=== PATIENT | male | born 1990 | race Caucasian/White ===

== ENCOUNTER 2019-06-05 10:07 | Emergency (ER) | payer SELFPAY ==
[2019-06-05 10:09] VITALS: BP 110/64; PULSE 65; RESP 16; TEMP 36.6; O2SAT 99
--- NOTE | 2019-06-05 10:37 | ED.GENADULT ---
HPI - General Adult General Chief complaint: Back Pain/Injury Stated complaint: testicle pain/back pain Time Seen by Provider: 06/05/19 10:26 Source: patient and RN notes reviewed Mode of arrival: ambulatory Limitations: no limitations History of Present Illness HPI narrative: Patient presents today with a one-week history of right-sided low back pain. Denies any injury or trauma. Pain does not radiate. Denies numbness or tingling in the extremities. Denies any loss of bowel or bladder control. He is also complaining of right testicular pain, only with urination. The symptoms started this morning. Denies hematuria, frequency, urgency, penile discharge. Denies swelling or redness of the scrotum. Denies abdominal pain, nausea, vomiting. He currently rates his back pain 2/10 and is currently pain-free in the testicles. He has been occasionally taking Advil. Last dose was yesterday. MD complaint: Left testicular pain, low back pain Related Data Home Medications Medication Instructions Recorded Confirmed No Home Medications 06/05/19 06/05/19 Allergies Allergy/AdvReac Type Severity Reaction Status Date / Time No Known Allergies Allergy Verified 06/05/19 10:19 Review of Systems Review of Systems: Narrative: CONSTITUTIONAL: Denies body aches, fever, chills, or sweats. EYES: Denies visual changes, redness, or discharge. ENT: Denies rhinorrhea, congestion, sore throat, or otalgia. CARDIOVASCULAR: Denies chest pain, palpitations, or edema. RESPIRATORY: Denies cough or dyspnea. GASTROINTESTINAL: Denies abdominal pain, nausea, vomiting, or diarrhea. GENITOURINARY: Denies dysuria or hematuria.+ Left testicular pain with urination SKIN: Denies rash, itching, or wounds. MUSCULOSKELETAL: Denies joint pain, or myalgia.+ Right-sided low back pain NEUROLOGIC: Denies headache, numbness, tingling, or weakness. PSYCH: Denies depression or anxiety. PMFSH Comments At time of signature, I have reviewed and agree with nursing past medical, surgical, social and family history unless otherwise noted. Please see nursing chart for further information. There is no relevant family history pertinent to the presenting complaint Exam Narrative: Exam Narrative: GENERAL: Well-appearing, well-nourished, and in no acute distress. HEAD: Normocephalic, atraumatic. EYES: EOMI. No redness or drainage. ENT: Mucous membranes pink and moist. NECK: Normal AROM. CHEST: No respiratory distress. Clear to auscultation. HEART: Regular rate and rhythm. No murmur appreciated. Normal peripheral pulses. ABDOMEN: Soft, nontender, nondistended, normal active bowel sounds.-CVAT : patient has tenderness to the right lateral testicle. No swelling, deformity, or erythema noted to the scrotum or testicles. No firmness, masses, ropes palpated. He does not have posterior tenderness of either testicle. No penile discharge noted. Circumcised. No swelling, erythema, rash, wounds, or tenderness to the penis. Left testicle normal and nontender. MUSCULOSKELETAL: No bony tenderness of the spine. Right lower lumbar paraspinal muscle tenderness. No tenderness to the SI joints. Normal saddle sensation. EXTREMITIES: Normal range of motion. No edema. SKIN: Warm, dry, no rash. NEURO: No focal deficits. Alert and oriented x3. Gait steady. PSYCH: Normal affect. No signs of depression or anxiety. Course Course Emergency Course: Patient does have tenderness to the right testicle without swelling or erythema. UA is negative. Discussed with patient options for care: Transfer to the ER for further evaluation, or make an appointment with his PCP within the next 1 to 2 days for possible order of outpatient scrotal ultrasound. Patient would like to contact his PCP and believes he may be able to get in tomorrow for visit. Instructed patient that if his pain worsens, or if he develops any new symptoms, he needs to go the ER immediately for further evaluation. Vital Signs Vit
== END 2019-06-05 11:01 | disposition home or self-care (01) ==
PROVIDERS: Emergency Provider Nurse Practitioner
DX: S39.012A Strain of muscle, fascia and tendon of lower back, initial encounter (principal); X58.XXXA Exposure to other specified factors, initial encounter; N50.811 Right testicular pain
CPT/HCPCS: 81003; 99202; G0463

== ENCOUNTER 2019-12-12 20:54 | Emergency (ER) | payer OTHER, SELFPAY ==
--- NOTE | ~2019-12-12 | XR_ITS ---
EXAMINATION: XR shoulder LT min 2V EXAM DATE: 12/12/2019 21:36 INDICATION: Initial encounter following injury, with pain of the left shoulder. TECHNIQUE: The following left shoulder projections obtained: frontal projection with internal rotatio n, frontal projection with external rotation, Grashey, and axillary (4+ views). There is no prior st udy for comparison. FINDINGS: No evidence of left shoulder rotator cuff calcific tendinosis. Unremarkable left glenoh umeral and acromioclavicular joints. There are no acute fractures or dislocations identified. There is no subcutaneous gas. The soft tissue is unremarkable. There are no radiopaque foreign bodies. IMPRESSION: No acute osseous findings. Reviewed, dictated and finalized at location A. IMPRESSION: No acute osseous findings.
[2019-12-12 20:57] VITALS: BP 128/66; PULSE 71; RESP 19; TEMP 36.6; O2SAT 100
--- NOTE | 2019-12-12 22:13 | ED.UPPEXIN ---
HPI - Extremity Injury (Upper) General Chief Complaint: Extremity Injury, Upper Stated Complaint: L shoulder injury Time Seen by Provider: 12/12/19 21:08 History of Present Illness HPI narrative: He was play wrestling with someone at his home earlier this evening when he fell onto his left shoulder. Pain from the neck to mid upper arm. He reports that he is not able to flex or adduct his shoulder. Related Data Allergies Allergy/AdvReac Type Severity Reaction Status Date / Time No Known Allergies Allergy Verified 06/05/19 10:19 Review of Systems Review of Systems: All systems reviewed & are unremarkable except as noted in HPI and below Musculoskeletal: Musculoskeletal: Denies back pain Neurologic: Denies numbness and Denies weakness [facility] Social History Social History Gender identity (if verbalized by the patient): Male Exam Const: General: healthy appearing, no acute distress and alert Orientation/consciousness: patient oriented x3 HENMT: Head: normal to inspection Chest: Chest palpation & inspection: no tenderness Resp: Effort & Inspection: normal respiratory effort Auscultation: clear to auscultation bilaterally Cardio: Rate: regular rate Rhythm: regular rhythm Skin: General skin exam: normal color Wounds: no wounds Extrem: Other: Full ROM in left shoulder. No deformity Course Vital Signs Vital signs: Vital Signs Temperature 36.6 C 12/12/19 20:57 Pulse Rate 71 12/12/19 20:57 Respiratory Rate 19 12/12/19 20:57 Blood Pressure 128/66 12/12/19 20:57 Pulse Oximetry 100 12/12/19 20:57 Temperature 36.9 C 12/12/19 23:24 Pulse Rate 78 12/12/19 23:24 Respiratory Rate 16 12/12/19 23:24 Blood Pressure 126/78 12/12/19 23:24 Pulse Oximetry 98 12/12/19 23:24 MDM - Extremity Injury (Upper) MDM Narrative Medical decision making narrative: X-ray negative. Medical Records Attestation: I reviewed the patient's medical records. Imaging Data Radiologist's impression: ITS Impressions Shoulder X-Ray 12/12/19 21:37 IMPRESSION: No acute osseous findings. Discharge Plan Discharge Clinical Impression: Strain of left pectoralis muscle Patient Disposition: Home, Self-Care Condition: Stable Instructions: Muscle Strain (ED) Prescriptions: New cyclobenzaprine 10 mg tablet 10 mg PO TID PRN (Reason: muscle spasm) Qty: 20 RF: 0 ibuprofen 600 mg tablet 600 mg PO QID PRN (Reason: pain) Qty: 30 RF: 0 Follow-up/Referrals: UNKNOWN,DOCTOR [Primary Care Provider] - Discharge Date/Time: 12/12/19 23:25
[2019-12-12] MEDS: CYCLOBENZAPRINE HCL 10 MG TABLET PO (23:19)
[2019-12-12 23:24] VITALS: BP 126/78; PULSE 78; RESP 16; TEMP 36.9; O2SAT 98
== END 2019-12-12 23:25 | disposition home or self-care (01) ==
PROVIDERS: Emergency Provider Emergency Medicine
DX: S29.011A Strain of muscle and tendon of front wall of thorax, initial encounter (principal); W18.39XA Other fall on same level, initial encounter; Y93.83 Activity, rough housing and horseplay
CPT/HCPCS: 73030; 99283; A9270

== ENCOUNTER 2020-05-28 12:46 | Emergency (ER) | payer OTHER, SELFPAY ==
[2020-05-28 13:00] VITALS: BP 120/68; PULSE 72; RESP 18; TEMP 36.5; O2SAT 99
[2020-05-28 13:12] LABS: Basophils Absolute Auto 0.1 K/mm3 (0.0-0.1); Basophils Percent Auto 0.7 % (0.2-1.2); Eosinophils Absolute Auto 0.2 K/mm3 (0-0.3); Eosinophils Percent Auto 2.2 % (0-4.4); Hematocrit 44.7 % (42.0-52.0); Hemoglobin 15.1 g/dL (14.0-18.0); Immature Granulocyte Absolute 0.01 K/mm3 (0.00-0.031); Immature Granulocyte Percent A 0.1 % (0-0.5); Lymphocytes Absolute Auto 1.75 K/mm3 (0.9-3.2); Mean Corpuscular HGB Conc 33.8 g/dl (32-36); Mean Corpuscular Hemoglobin 29.8 pg (26-34); Mean Corpuscular Volume 88.2 fl (80-100); Mean Platelet Volume 9.6 fl (7.4-10.4); Monocytes Absolute Auto 0.7 K/mm3 (0.1-0.6); Monocytes Percent Auto 8.9 % (2.6-8.5); Neutrophils Absolute Auto 4.7 K/mm3 (1.3-6.7); Neutrophils Percent Auto 64.1 % (45.5-73.1); Platelet Count Result 214 k/mm3 (150-375); Red Blood Count 5.07 M/mm3 (4.6-6.20); Red Cell Distribution Width 12.3 % (11.5-14.5); White Blood Count 7.3 K/mm3 (4.5-10.0)
[2020-05-28 13:12] LABS: Glucose Point of Care 106 (65-105)
[2020-05-28 13:21] LABS: Alanine Aminotransferase 16 U/L (4-50); Albumin Level 4.1 g/dL (3.5-5.1); Alkaline Phosphatase 68 U/L (38-126); Anion Gap 4 mmol/L (8-16); Aspartate Amino Transferase 26 U/L (17-59); Bilirubin,Total 0.5 mg/dL (0.2-1.3); Blood Urea Nitrogen 10 mg/dL (9-20); Calcium 8.9 mg/dL (8.4-10.2); Carbon Dioxide 27 mmol/L (22-30); Chloride 106 mmol/L (98-107); Estimated CRCL calculation 87 ml/min; Estimated Glomerular Filt Rate > 60; Glucose 106 mg/dL (75-110); Potassium 4.1 mmol/L (3.4-5.0); Sodium 137 mmol/L (137-145)
[2020-05-28 13:28] LABS: Add Urine Microscopic? NO; Appearance Urine Clear (Clear); Bilirubin Urine Negative (Negative); Blood Urine Negative (Negative); Color Urine Yellow (Yellow); Glucose Urine UA Negative (Negative); Ketones Urine Negative (Negative); Leukocyte Esterase Ur Negative LEU/UL (Negative); Nitrate Urine Negative (Negative); Protein Urine Negative (Negative); Specific Grav Ur 1.018 (1.001-1.035); Urobilinogen Urine Negative mg/dL (<2.0)
--- NOTE | 2020-05-28 13:38 | PC.NURSE ---
pt states is here to have testing done to rule out diabetes though pt has no symptoms of this.
--- NOTE | 2020-05-28 13:50 | PC.NURSE ---
a1c and tsh added by dr. waldrop. pt resting quietly on stretcher using cell phone. no distress noted.
[2020-05-28 14:14] LABS: Hemoglobin A1C 5.5 % (<5.7)
--- NOTE | 2020-05-28 15:14 | ED.RECABL ---
HPI - Recheck/Abnormal Lab/Rx General Chief Complaint: Recheck/Abnormal Lab/Rx Stated Complaint: ELEVATED BLOOD SUGAR [id number] Time Seen by Provider: 05/28/20 13:50 Source: patient Mode of arrival: ambulatory Limitations: no limitations History of Present Illness HPI narrative: A 29-year-old male basically in good health For 2 or 3 weeks he sometimes does find himself urinating frequently without any symptoms of burning or dysuria Because of this he had borrowed a glucometer and checked a couple of random blood sugars which were in the mid 200s There is a family history of diabetes but has never been a problem for him previously No other complaints Related Data Home Medications Medication Instructions Recorded Confirmed No Home Medications 05/28/20 Allergies Allergy/AdvReac Type Severity Reaction Status Date / Time No Known Allergies Allergy Verified 05/28/20 13:33 Review of Systems Review of Systems: All systems reviewed & are unremarkable except as noted in HPI and below Constitutional: Constitutional: Denies chills, Denies fatigue, Denies fever(s), Denies headache(s) and Denies weakness Eyes: Eyes: Reports no additional eye complaints and Denies change in vision ENT: Denies headache(s), Denies epistaxis, Denies nasal congestion and Denies sore throat Cardiovascular: Cardiovascular: Denies chest pain, Denies leg edema, Denies palpitations and Denies dyspnea Respiratory: Respiratory: Denies cough, Denies dyspnea and Denies wheezing Gastrointestinal: Gastrointestinal: Denies abdominal pain, Denies diarrhea, Denies nausea and Denies vomiting Genitourinary: Genitourinary: Denies hematuria, Denies dysuria and Reports urinary frequency Musculoskeletal: Musculoskeletal: Denies deformity, Denies arthralgias, Denies joint swelling, Denies muscle weakness and Denies numbness Integumentary/Breasts: Skin/Breast: Denies rash and Denies wounds Neurologic: Denies headache(s), Denies focal weakness, Denies numbness and Denies weakness Psychiatric: Psychiatric: Reports no additional psychiatric complaints Endocrine: Endocrine: Denies fatigue and Denies palpitations Hematologic/Lymphatic: Hematologic/Lymphatic: Denies easy bleeding and Denies easy bruising Allergic/Immunologic: Allergic/Immunologic: Denies wheezing PMFSH Social History Social History Gender identity (if verbalized by the patient): Male Exam Const: General: no acute distress, well developed and awake Nutritional Appearance: well nourished Orientation/consciousness: patient oriented x3 (alert) Limitations: no limitations HENMT: Head: normocephalic and atraumatic Ears: external ears normal General nose exam: No nasal discharge present and no epistaxis Face and sinus: face symmetric Eyes: Conjunctivae: conjunctivae normal Sclera: sclerae normal EOM: EOMs intact bilaterally Neck: Neck: normal visual inspection, supple and no JVD Chest: Chest palpation & inspection: deferred Resp: Effort & Inspection: normal respiratory effort Auscultation: clear to auscultation bilaterally, no rales, no rhonchi, no wheezes and other (BS =) Cardio: Rate: regular rate Rhythm: regular rhythm Heart sounds: no gallops and no murmurs GI: Inspection: normal to inspection : General: Yes no CVA tenderness Back/Spine/Pelvis: Back: no CVA tenderness Thoracic/Lumbar Spine: thoracic and lumbar spine normal to inspection Skin: General skin exam: normal color and no rashes or lesions noted Neuro: General: patient oriented x3 (alert) and moves all extremities Cranial nerves: Yes facial symmetry Speech: normal speech Extrem: General: normal to inspection and full ROM Psych: Affect: normal affect Course Vital Signs Vital signs: Vital Signs Temperature 36.5 C 05/28/20 13:00 Pulse Rate 72 05/28/20 13:00 Respiratory Rate 18 05/28/20 13:00 Blood Pressure 120/68 05/28/20 13:00 Pulse Oximetry 99 05/28/20 13:00 Temperatur
== END 2020-05-28 15:22 | disposition home or self-care (01) ==
PROVIDERS: Emergency Medicine Emergency Medical Services; Emergency Provider Emergency Medicine
DX: R73.9 Hyperglycemia, unspecified (principal)
CPT/HCPCS: 36415; 80053; 81003; 82948; 83036; 84443; 85025; 99283